=== PATIENT | female | born 1960 | race Caucasian/White ===

== ENCOUNTER → 2022-09-06 | Outpatient (CLI) | payer MEDICARE | END | disposition home or self-care (01) | LOC: US 15:28 | PROVIDERS: ATTEND Nurse Practitioner Family | DX: N28.9 Disorder of kidney and ureter, unspecified (principal) ==

== ENCOUNTER 2024-05-23 15:23 | Emergency (ER) | payer MEDICARE ==
[~2024-05-23] VITALS: Ht 167.6 cm; Wt 68.0 kg
[2024-05-23] MEDS ORDERED: methylPREDNISolone sod succ 125 MG VIAL IM ONE (15:50)
[2024-05-23] MEDS ORDERED: Albuterol Sulf/Ipratropium 3 ML VIAL NEB ONE (15:50)
[2024-05-23 16:07] LABS: BASO % 0.2 % (0.0-1.0); EOS % 0.9 % (1.0-4.0); HEMATOCRIT 37.7 % (37.0-47.0); MEAN CELL VOLUME 91.5 fl (81.0-99.0); MEAN CORPUSCULAR HGB 28.9 pg (27.0-31.0); MEAN CORPUSCULAR HGB CONC 31.6 g/dl (33.0-37.0); MEAN PLATELET VOLUME 11.2 fl (9.6-12.3); MONO # 0.7 10*3/uL (0.1-1.0); MONO % 14.4 % (3.0-9.0); NEUT # 2.3 10*3/uL (2.3-7.9); NEUT % 50.5 % (47.0-73.0); PLATELET COUNT AUTOMATED 121 10*3/uL (130-400); RED BLOOD COUNT 4.12 10*6/uL (4.10-5.10); RED CELL DISTRI WIDTH 12.8 % (0-14.5); WHITE BLOOD COUNT 4.5 10*3/uL (4.8-10.8)
[2024-05-23] MEDS ORDERED: MEDROL DOSEPAK4 MG PO (17:17)
[2024-05-23] MEDS ORDERED: AVPAK AZITHROM250 M1 PO (17:17)
== END 2024-05-23 17:19 | disposition home or self-care (01) ==
LOC: ED 15:23
PROVIDERS: Physician Assistant Medical
DX: J98.4 Other disorders of lung (principal); Z20.822 Contact with and (suspected) exposure to COVID-19; N18.9 Chronic kidney disease, unspecified; F17.290 Nicotine dependence, other tobacco product, uncomplicated

== ENCOUNTER → 2025-06-17 | Outpatient (CLI) | payer OTHER ==
[~2025-06-17] MED LIST: AVPAK AZITHROM250 M1 PO; MEDROL DOSEPAK4 MG PO
[2025-06-17 11:46] LABS: BASO # 0.0 10*3/uL (0.0-0.1); BASO % 0.7 % (0.0-1.0); EOS # 0.1 10*3/uL (0.0-0.4); EOS % 3.1 % (1.0-4.0); MEAN CELL VOLUME 91.4 fl (81.0-99.0); MEAN CORPUSCULAR HGB 28.5 pg (27.0-31.0); MEAN PLATELET VOLUME 10.6 fl (9.6-12.3); MONO # 0.5 10*3/uL (0.1-1.0); MONO % 11.9 % (3.0-9.0); NEUT # 1.8 10*3/uL (2.3-7.9); NEUT % 39.8 % (47.0-73.0); NUCLEATED RED BLOOD CELL 0.0 % (0.0-0.0); NUCLEATED RED BLOOD CELL 0.0 10*3/uL (0.0-0.0); PLATELET COUNT AUTOMATED 174 10*3/uL (130-400); RED CELL DISTRI WIDTH 13.1 % (0-14.5)
[2025-06-17 12:31] LABS: VITAMIN D, 25-HYDROXY 52.7 ng/mL (30-100)
[2025-06-17 12:49] LABS: BUN 16.0 mg/dl (9-23); SGPT/ALT 14.0 U/L (5-49)
== END | disposition home or self-care (01) ==
LOC: US 06-11 11:00 → LAB 01:54 → US 10:30
PROVIDERS: ATTEND Internal Medicine Nephrology
DX: N18.31 Chronic kidney disease, stage 3a (principal); E83.9 Disorder of mineral metabolism, unspecified